=== PATIENT | female | born 1985 | race Caucasian/White ===

== ENCOUNTER → 2016-11-21 | Outpatient (CLI) | payer OTHER | LOC: COL.RAD 09:00 | DX: N97.8 Female infertility of other origin (principal) | CPT/HCPCS: Q9967 ==

== ENCOUNTER 2017-10-01 06:09 | Inpatient (IN) | payer OTHER ==
[2017-10-01] VITALS (20 sets, daily range): BP systolic 79–128; BP diastolic 44–84; PULSE 60–86; TEMP 98–98.1
[~2017-10-01] VITALS: Ht 154.9 cm; Wt 75.0 kg
[2017-10-01] MEDS ORDERED: NATURAL IRON65 MG (06:23)
[2017-10-01] MEDS ORDERED: PRENATAL1 TA7 PO (06:23)
[2017-10-01] MEDS ORDERED: ZANTAC 150MG T150 MG PO (06:24)
[2017-10-01 06:42] LABS: BASO # 0.1 (0.0-0.2); BASO % 0.5 % (0.0-2.0); EOS # 0.1 (0.0-0.7); EOS % 0.8 % (0-4.0); GRAN # 7.7 (1.4-6.5); GRAN % 71.9 % (42.2-75.2); HEMATOCRIT 34.2 % (37.0-47.0); HEMOGLOBIN 11.9 g/dl (12.5-16.0); LYMPH # 2.1 (1.2-3.4); LYMPH % 19.5 % (20.0-51.0); MEAN CELL VOLUME 90 fl (80.0-100.0); MEAN CORPUSCULAR HEMOGLOBIN 31 pg (27.0-31.0); MEAN CORPUSCULAR HGB CONC 35 g/dl (33.0-37.0); MEAN PLATELET VOLUME 9.6 fl (7.4-10.4); MONO # 0.7 (0.1-0.6); MONO % 6.6 % (1.7-9.3); PLATELET COUNT 215 K/mm3 (130-400); RED BLOOD COUNT 3.82 M/mm3 (4.10-5.30); REDCELL DISTRIBUTION WIDTH-CV 12.8 % (11.5-14.5)
[2017-10-02 02:00] VITALS: BP 128/70; PULSE 70; TEMP 98
[2017-10-02 07:30] VITALS: BP 118/81; PULSE 71; TEMP 97.4
[2017-10-02] MEDS ORDERED: IBU600 MG PO (08:46)
[2017-10-02] MEDS ORDERED: PERCOCET 325 MG1 TA2 PO (08:47)
[2017-10-02 17:55] VITALS: BP 121/74; PULSE 71; TEMP 97.8
[2017-10-02 22:40] VITALS: BP 127/83; PULSE 86; TEMP 98.2
[2017-10-03 07:07] VITALS: BP 126/73; PULSE 73; TEMP 98.4
== END 2017-10-03 12:30 | disposition home or self-care (01) | DRG 766 ==
LOC: LDRO 06:09 → LDR 06:25 → OB 06:25
PROVIDERS: Obstetrics & Gynecology
PROC: 10D00Z1 Extraction of Products of Conception, Low, Open Approach (ICD-10-PCS; principal; 2017-10-01)
DX: O34.211 Maternal care for low transverse scar from previous cesarean delivery (principal); O42.02 Full-term premature rupture of membranes, onset of labor within 24 hours of rupture; Z3A.38 38 weeks gestation of pregnancy; Z37.0 Single live birth
CPT/HCPCS: J0690; J1885; J2370; J2405; J2590; J3010; J7120

== ENCOUNTER → 2018-04-30 | Outpatient (CLI) | payer OTHER ==
[~2018-04-30] MED LIST: IBU600 MG PO; NATURAL IRON65 MG; PERCOCET 325 MG1 TA2 PO; PRENATAL1 TA7 PO; ZANTAC 150MG T150 MG PO
== END ==
LOC: COL.RAD 10:30
DX: N30.20 Other chronic cystitis without hematuria (principal)

== ENCOUNTER 2018-08-19 10:00 | Outpatient (RCR) | payer OTHER | END 2018-09-20 10:27 | disposition home or self-care (01) | LOC: MKS.ESL.PT 10:00 | DX: M62.08 Separation of muscle (nontraumatic), other site (principal) ==